=== PATIENT | female | born 1950 | race Caucasian/White ===

== ENCOUNTER → 2017-03-24 | Outpatient (CLI) | payer MEDICARE ==
--- NOTE | 2017-03-24 09:44 | US ---
EXAMINATION TYPE: US liver DATE OF EXAM: 03/24/2017 COMPARISON: NONE CLINICAL HISTORY: R94.5 ABN Results Of Liver Function Studies. Elevated liver enzymes EXAM MEASUREMENTS: Liver Length: 17.5 cm Gallbladder Wall: 0.3 cm CBD: 0.4 cm Right Kidney: 12.0 x 4.7 x 5.8 cm Pancreas: Obscured by bowel gas Liver: enlarged, attenuating . This limits evaluation for underlying hepatic masses. Gallbladder: no evidence of stones Evidence for sonographic Wilson's sign: no CBD: wnl as visualized Right Kidney: dense echogenic calculus lower pole = 0.7cm IMPRESSION: 1. Heterogenous hyperechoic hepatic echotexture, most commonly related to underlying hepatic steatosi s appearing moderate in degree. 2. 7 mm nonobstructing left renal calculus. 3. No sonographic evidence of acute cholecystitis or cholelithiasis.
== END | disposition home or self-care (01) ==
LOC: RADUSWWP 08:20
PROVIDERS: ATTEND Family Medicine
DX: R93.2 Abnormal findings on diagnostic imaging of liver and biliary tract (principal); N20.0 Calculus of kidney
CPT/HCPCS: 76705

== ENCOUNTER 2017-04-10 11:08 | Emergency (ER) | payer MEDICARE, OTHER ==
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
--- NOTE | 2017-04-10 12:17 | XR ---
EXAMINATION TYPE: XR chest 2V DATE OF EXAM: 04/10/2017 COMPARISON: None HISTORY: 66-year-old female with cough TECHNIQUE: PA and lateral views FINDINGS: Heart is normal size. Mild elongation of the thoracic aorta. There is peribronchial cuffing. No conso lidation or pleural effusion. IMPRESSION: Peribronchial cuffing could represent bronchitis or uncontrolled asthma. No focal infiltrate.
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
[2017-04-10] MEDS ORDERED: IBUPROFEN 800 MG TAB PO STA (12:41)
[2017-04-10 12:56] VITALS: BP 178/80; PULSE 74; RESP 16; TEMP 98
== END 2017-04-10 12:54 | disposition home or self-care (01) ==
LOC: EC 11:08
DX: S16.1XXA Strain of muscle, fascia and tendon at neck level, initial encounter (principal); S40.012A Contusion of left shoulder, initial encounter; S00.03XA Contusion of scalp, initial encounter; R40.2412 Glasgow coma scale score 13-15, at arrival to emergency department; I10 Essential (primary) hypertension; Z79.899 Other long term (current) drug therapy; V49.49XA Driver injured in collision with other motor vehicles in traffic accident, initial encounter; Y92.410 Unspecified street and highway as the place of occurrence of the external cause
CPT/HCPCS: 71020; 72050; 99284

== ENCOUNTER → 2017-10-06 | Outpatient (CLI) | payer MEDICARE ==
--- NOTE | 2017-10-06 11:43 | US ---
EXAMINATION TYPE: US abdomen limited DATE OF EXAM: 10/06/2017 COMPARISON: 03/24/2017 CLINICAL HISTORY: R74.8 Abnormal Serum Enzyme Levels. EXAM MEASUREMENTS: Liver Length: 16.8 cm Gallbladder Wall: 0.1 cm CBD: 0.4 cm Right Kidney: 11.0 x 4.8 x5.9 cm Pancreas: Obscured by bowel gas Liver: wnl Gallbladder: No stones seen Evidence for sonographic Wilson's sign: no CBD: wnl Right Kidney: No hydronephrosis or masses seen IMPRESSION: 1. Unremarkable study.
== END | disposition home or self-care (01) ==
LOC: RADUSWWP 10:16
PROVIDERS: ATTEND Family Medicine
DX: R74.8 Abnormal levels of other serum enzymes (principal)
CPT/HCPCS: 76705